=== PATIENT | female | born 1965 | race African-American/Black ===

== ENCOUNTER 2019-05-04 12:29 | Emergency (ER) | payer OTHER ==
[~2019-05-04] VITALS: Ht 157.5 cm; Wt 111.1 kg
[2019-05-04 15:02] LABS: URINE BILIRUBIN NEGATIVE (Negative); URINE BLOOD 1+ (Negative); URINE CLARITY CLEAR; URINE COLOR YELLOW; URINE GLUCOSE-RANDOM* NEGATIVE (Negative); URINE KETONES NEGATIVE (Negative); URINE LEUKOCYTES-REFLEX NEGATIVE (Negative); URINE NITRITE-REFLEX NEGATIVE (Negative); URINE PROTEIN (DIPSTICK) NEGATIVE (Negative); URINE SPECIFIC GRAVITY 1.025 (1.005-1.035); URINE UROBILINOGEN 0.2 E.U./dl (0.2-1.0)
[2019-05-04] MEDS ORDERED: PRINIVIL20 M1 PO (15:06)
[2019-05-04] MEDS ORDERED: SORINE 80 MG TA80 MG PO (15:07)
[2019-05-04] MEDS ORDERED: COUMADIN 5 MG TA5 M1 PO (15:07)
[2019-05-04] MEDS ORDERED: HYDROCHLOROTHIA25 M2 PO (15:07)
[2019-05-04] MEDS ORDERED: METFORMIN HCL500 M3 PO (15:08)
[2019-05-04] MEDS ORDERED: VITAMIN C500 M1 PO (15:08)
[2019-05-04] MEDS ORDERED: COUMADIN7.5 MG PO (15:08)
[2019-05-04] MEDS ORDERED: OMEGA 3 FISH O1 EACH PO (15:09)
[2019-05-04] MEDS ORDERED: SUPER THERAVIT1 EACH PO (15:09)
[2019-05-04] MEDS ORDERED: CENTRUM SILVER1 EACH PO (15:09)
[2019-05-04 15:10] LABS: CASTS None Seen /LPF (None Seen); MUCUS 0-3 Light strn/LPF (None Seen); SQUAMOUS 0-3 Few /LPF (0-3)
[2019-05-04 15:11] LABS: BACTERIA-REFLEX 1-9 Few /HPF (None Seen); CRYSTALS None Seen /LPF (None Seen); URINE RBC 0-2 Rare /HPF (0-2); URINE WBC-REFLEX 0-5 Rare /HPF (0-5)
[2019-05-04 15:25] LABS: ABSOLUTE NEUTROPHILS 5.4 thou/uL (1.4-8.2); BASOPHILS 0.8 % (0.0-2.0); EOSINOPHILS 1.7 % (0.0-3.0); HEMATOCRIT 40.2 % (37.0-47.0); HEMOGLOBIN 13.1 gm/dL (12.0-15.0); LYMPHOCYTES 11.6 % (24.0-44.0); MCH 28.4 pg (26.0-34.0); MCHC 32.6 g/dL (28.0-37.0); MCV 87.1 fL (80.0-100.0); MONOCYTES 5.3 % (1.0-8.0); PLATELET COUNT 268 thou/uL (150-400); POLYS 80.6 % (36.0-66.0); RBC 4.62 mil/uL (4.20-5.00); WBC 6.7 thou/uL (4.0-11.0)
[2019-05-04 15:49] LABS: CALCIUM 9.7 mg/dL (8.5-10.1); CREATININE 0.7 mg/dL (0.6-1.0); POTASSIUM 3.8 mmol/L (3.5-5.1)
[2019-05-04] MEDS ORDERED: TESSALON PERLE100 MG PO (16:15)
[2019-05-04] MEDS ORDERED: PROAIR HFA8.5 GM INH (16:15)
[2019-05-04 16:50] VITALS: BP 149/89
== END 2019-05-04 16:51 | disposition home or self-care (01) ==
LOC: ER 12:29
PROVIDERS: Emergency Medicine
DX: R05 Cough (principal); R50.9 Fever, unspecified